=== PATIENT | male | born 1960 | race Two or more races ===

== ENCOUNTER 2022-07-28 09:28 | Outpatient (CLI) | payer OTHER | END 2022-07-28 09:32 | disposition home or self-care (01) | LOC: SONOGRAMA 09:28 | PROVIDERS: ATTEND Pathology Anatomic Pathology & Clinical Pathology | DX: C77.0 Secondary and unspecified malignant neoplasm of lymph nodes of head, face and neck (principal); Z85.810 Personal history of malignant neoplasm of tongue; R22.1 Localized swelling, mass and lump, neck ==